=== PATIENT | male | born 1970 | race Caucasian/White ===

== ENCOUNTER → 2021-12-17 | Outpatient (CLI) | payer BC ==
--- NOTE | 2021-12-18 09:22 | CT ---
EXAMINATION TYPE: CT abdomen pelvis w con DATE OF EXAM: 12/17/2021 COMPARISON: NONE HISTORY: 51-year-old male Epigastric pain, chronic stomach/abdominal pain TECHNIQUE: Contiguous axial scanning of the abdomen and pelvis following administration of 100 ml Iso antonino 300 IV contrast. Delayed images through the kidneys and coronal/sagittal reconstructions perform ed. CT DLP: 629.20 mGycm Automated exposure control for dose reduction was used. FINDINGS: Heart normal size without pericardial effusion. Lung bases clear without pleural effusion. Low attenuation the hepatic parenchyma suggests underlying fatty infiltration. Small amount of focal fat along the anterior falciform ligament. No biliary ductal dilatation. Portal venous system is de la rosa nt. Somewhat masslike configuration to the pancreatic head and some associated hypodensity, for example, coronal image 41 and axial image 30. Unable to determine if this is normal variation or there is an u nderlying lesion. Correlate with tumor markers. Diffuse fold thickening within the gastric fundus and proximal to mid body. Adrenal glands, right kidney, and spleen within normal limits. Condyle cortical defect within the left kidney suggesting sequela of prior vascular or infectious ins ults. No dilated small bowel, free fluid, or free air. Small bowel loops are located in the right side of the abdomen. Cecum is located at the left mid abdo men as is the remainder of the colon. Ligament of Treitz is not in its normal location. Oral contrast progressed to the ascending colon. There is moderate stool burden. No pericolonic inflammatory rossi e. Tiny hiatal hernia. No mesenteric or retroperitoneal lymphadenopathy. Bladder urine distended. Prostate gland measures 4.5 cm. No abnormal fluid collection in the pelvis o r pelvic lymphadenopathy. Bones: Mild degenerative change of both hips. Mild degenerative disc disease throughout the lumbar sp ine. IMPRESSION: 1. AT LEAST MODERATE DIFFUSE FOLD THICKENING INVOLVING THE GASTRIC FUNDUS AND PROXIMAL TO MID GASTRIC BODY. CORRELATE FOR GASTRITIS. DIRECT VISUALIZATION IF CLINICALLY INDICATED. 2. SOMEWHAT MASSLIKE APPEARANCE TO THE PANCREATIC HEAD AND SOME ASSOCIATED HYPODENSITY. UNABLE TO DET ERMINE IF THIS IS NORMAL VARIATION OR IF THERE IS AN UNDERLYING LESION. CORRELATION WITH TUMOR MARKER S AND DEPENDING ON CLINICAL SUSPICION, EITHER EUS OR PANCREAS MRI. IF LOW CLINICAL SUSPICION, THREE- MONTH FOLLOW-UP CT CAN ENSURE STABILITY OF THE FINDING. 3. CONGENITAL ABNORMALITY WITH SMALL BOWEL MALROTATION NOTED. 4. MODERATE STOOL BURDEN. TINY HIATAL HERNIA. HEPATIC STEATOSIS. 5. MILD PROSTATOMEGALY at 4.5 CM WIDE.
== END | disposition home or self-care (01) ==
LOC: RADCTMAIN 17:15
PROVIDERS: ATTEND Internal Medicine
DX: K44.9 Diaphragmatic hernia without obstruction or gangrene (principal); K76.0 Fatty (change of) liver, not elsewhere classified; N40.0 Benign prostatic hyperplasia without lower urinary tract symptoms
CPT/HCPCS: 74177; Q9967